=== PATIENT | female | born 1985 | race Caucasian/White ===

== ENCOUNTER 2022-05-15 14:51 | Outpatient (CLI) | payer OTHER, SELFPAY ==
[2022-05-27 21:42] LABS: Acetylchol Receptor Binding Ab <0.30 nmol/L
== END 2022-05-15 14:52 | disposition home or self-care (01) ==
LOC: ANHGOSHLAB 14:55
PROVIDERS: PCP Emergency Medicine
DX: H53.2 Diplopia (principal)
CPT/HCPCS: 36415; 84238

== ENCOUNTER 2022-05-27 10:46 | Outpatient (CLI) | payer OTHER, SELFPAY ==
[2022-05-28 05:10] LABS: Kit Draw Collected
== END 2022-05-27 10:47 | disposition home or self-care (01) ==
PROVIDERS: PCP Emergency Medicine; Visit Provider Emergency Medicine
DX: J45.909 Unspecified asthma, uncomplicated (principal); E06.3 Autoimmune thyroiditis; E66.9 Obesity, unspecified
CPT/HCPCS: 36415

== ENCOUNTER → 2022-09-11 13:18 | Outpatient (CLI) | payer OTHER, SELFPAY ==
--- NOTE | ~2022-09-11 | XR_ITS ---
EXAMINATION: XR chest 2V Exam Date/Time: 09/11/2022 13:24 CDT HISTORY: Mild persistent asthma, uncomplicated Comparison: None available. RESULT: Lines, tubes, and devices: None. Lungs and pleura: Bilobed right lower lung opacity. Lungs otherwise clear. No correlate in the later al view noting this lesion is low in the lung and may be obscured by summation artifact in the latera l view. Cardiomediastinal silhouette: Unremarkable. Other: No acute osseous or upper abdominal finding. IMPRESSION: Bilobed right lower lung nodule, recommend comparison to outside studies if available. Otherwise, con ingot supervisor low-dose noncontrast CT of the chest. Reviewed, dictated and finalized at [facility]. IMPRESSION: Bilobed right lower lung nodule, recommend comparison to outside studies if maricruz ilable. Otherwise, consider low-dose noncontrast CT of the chest.
== END ==
DX: J45.30 Mild persistent asthma, uncomplicated (principal); R91.1 Solitary pulmonary nodule
CPT/HCPCS: 71046

== ENCOUNTER → 2022-09-20 14:40 | Outpatient (CLI) | payer OTHER, SELFPAY ==
--- NOTE | ~2022-09-20 | CT_ITS ---
CT Scan of the Chest without Contrast: Clinical Indication: Pulmonary nodule Technique: Contiguous sections were acquired throughout the chest without intravenous contrast. Dose reduction technique was used on this scan by utilizing automated exposure control and iterative recon struction technique. The dose-length product (DLP) was 139.62 mGy-cm. Findings: There is no evidence of any significant mediastinal, hilar or axillary lymphadenopathy. The mediastin al soft tissues appear normal. There is no evidence of pleural or pericardial effusion. 1 cm densely calcified right lower lobe granuloma is present. No other pulmonary nodule or pulmonary abnormality seen. Images through the upper abdomen reveal no abnormalities. Impression: 1 cm calcified right lower lobe granuloma, benign. No other significant findings. Reviewed, dictated and finalized at [facility]. Impression: 1 cm calcified right lower lobe granuloma, benign. No other significant findings.
== END ==
DX: R91.1 Solitary pulmonary nodule (principal); J84.10 Pulmonary fibrosis, unspecified
CPT/HCPCS: 71250